=== PATIENT | male | born 1985 | race Asian ===

== ENCOUNTER 2018-08-07 12:56 | Outpatient (CLI) | payer OTHER | END 2018-08-07 19:09 | disposition home or self-care (01) | LOC: SRD 12:56 | PROVIDERS: ATTEND Internal Medicine | DX: M25.532 Pain in left wrist (principal) ==

== ENCOUNTER 2019-04-10 09:59 | Outpatient (CLI) | payer OTHER ==
[2019-04-10 11:17] LABS: BASOPHILS % (AUTO) 0.7 % (0.0-2.0); HEMATOCRIT 46.6 % (36-54); HEMOGLOBIN 16.4 g/dL (14.0-18.0); LYMPHOCYTES # (AUTO) 1.4 K/uL (1.0-5.5); LYMPHOCYTES % (AUTO) 26.8 % (20.5-51.5); MEAN CORPUSCULAR HEMOGLOBIN 32 pg (27-31); MEAN CORPUSCULAR HGB CONC 35 % (32-36); MEAN CORPUSCULAR VOLUME 91 fL (79.0-98.0); MONOCYTES # (AUTO) 0.4 K/uL (0.0-1.0); MONOCYTES % (AUTO) 7.7 % (1.7-9.3); NEUTROPHILS # (AUTO) 3.2 K/uL (1.8-7.7); NEUTROPHILS % (AUTO) 63.8 % (40.0-70.0); PLATELET COUNT (AUTO) 191 K/uL (130-430); RED CELL DISTRIBUTION WIDTH 12.8 % (9.0-15.0)
[2019-04-10 11:25] LABS: BILIRUBIN,URINE 1+ (NEGATIVE); BLOOD, URINE NEGATIVE (NEGATIVE); CLARITY/URINE CLEAR (CLEAR); GLUCOSE,URINE NEGATIVE (NEGATIVE); KETONES,URINE NEGATIVE (NEGATIVE); LEUKOCYTE ESTERASE ,URINE NEGATIVE (NEGATIVE); NITRITE, URINE POSITIVE (NEGATIVE); PROTEIN URINE 1+ (NEGATIVE)
[2019-04-10 11:27] LABS: COLOR,URINE AMBER (YELLOW)
[2019-04-10 11:42] LABS: ALBUMIN 4.3 g/dL (3.4-4.8); CALCIUM 9.3 mg/dL (8.4-11.0); CREATININE 1.11 mg/dL (0.55-1.30); POTASSIUM 4.1 mmol/L (3.5-5.1); THYROID STIMULATING HORMONE 1.99 uIu/mL (0.36-3.74); TOTAL BILIRUBIN 0.9 mg/dL (0.0-1.0)
[2019-04-10 11:52] LABS: BACTERIA,URINE FEW /HPF (None Seen)
[2019-04-11 04:15] LABS: HEMOGLOBIN A1C 5.2 % (4.8-5.6)
== END 2019-04-10 20:52 | disposition home or self-care (01) ==
LOC: SLB 09:59
PROVIDERS: ATTEND Internal Medicine
DX: E78.5 Hyperlipidemia, unspecified (principal); E66.9 Obesity, unspecified; R73.9 Hyperglycemia, unspecified
CPT/HCPCS: 36415; 80053; 80061; 81000-TC; 82306; 83036; 84443-TC; 85025; 87086

== ENCOUNTER 2019-04-14 14:36 | Outpatient (CLI) | payer OTHER | END 2019-04-14 20:40 | disposition home or self-care (01) | LOC: SLB 14:36 | PROVIDERS: ATTEND Internal Medicine | DX: A74.89 Other chlamydial diseases (principal) | CPT/HCPCS: 87491; 87591 ==

== ENCOUNTER 2019-04-16 08:45 | Outpatient (CLI) | payer OTHER | END 2019-04-16 20:12 | disposition home or self-care (01) | LOC: SUS 08:45 | PROVIDERS: ATTEND Internal Medicine | DX: R31.9 Hematuria, unspecified (principal); R94.5 Abnormal results of liver function studies | CPT/HCPCS: 76700-TC ==

== ENCOUNTER 2019-04-18 16:18 | Outpatient (CLI) | payer OTHER ==
[2019-04-22 01:14] LABS: CHLAMYDIA TRACHOMATIS NAA Negative (Negative); NEISSERIA GONORRHOEAE NAA Negative (Negative)
== END 2019-04-18 18:00 | disposition home or self-care (01) ==
LOC: SLB 16:18
PROVIDERS: ATTEND Internal Medicine
DX: A74.89 Other chlamydial diseases (principal)
CPT/HCPCS: 87491; 87591

== ENCOUNTER 2020-09-20 13:52 | Outpatient (CLI) | payer OTHER ==
[2020-09-20 14:45] LABS: BASOPHILS % (AUTO) 0.7 % (0.0-2.0); EOSINOPHILS % (AUTO) 0.4 % (0.0-4.0); HEMATOCRIT 43.9 % (36-54); HEMOGLOBIN 15.7 g/dL (14.0-18.0); LYMPHOCYTES # (AUTO) 1.3 K/uL (1.0-5.5); LYMPHOCYTES % (AUTO) 25.2 % (20.5-51.5); MEAN CORPUSCULAR HEMOGLOBIN 32 pg (27-31); MEAN CORPUSCULAR HGB CONC 36 % (32-36); MEAN CORPUSCULAR VOLUME 89 fL (79.0-98.0); MONOCYTES # (AUTO) 0.4 K/uL (0.0-1.0); MONOCYTES % (AUTO) 7.3 % (1.7-9.3); NEUTROPHILS # (AUTO) 3.4 K/uL (1.8-7.7); NEUTROPHILS % (AUTO) 66.4 % (40.0-70.0); PLATELET COUNT (AUTO) 182 K/uL (130-430); RED BLOOD CELL COUNT(AUTO) 4.93 MIL/uL (4.2-6.2); RED CELL DISTRIBUTION WIDTH 12.9 % (9.0-15.0); WHITE BLOOD COUNT (AUTO) 5.2 K/uL (4.8-10.8)
[2020-09-20 14:53] LABS: CALCIUM 9.3 mg/dL (8.4-11.0); CREATININE 1.28 mg/dL (0.55-1.30); POTASSIUM 4.3 mmol/L (3.5-5.1); THYROID STIMULATING HORMONE 1.59 uIu/mL (0.34-4.82); TOTAL BILIRUBIN 1.1 mg/dL (0.0-1.0); URIC ACID 7.8 mg/dL (2.4-7.0)
[2020-09-21 03:06] LABS: HEMOGLOBIN A1C 5.3 % (4.8-5.6)
== END 2020-09-20 20:42 | disposition home or self-care (01) ==
LOC: SLB 13:52
PROVIDERS: ATTEND Internal Medicine
DX: Z00.00 Encounter for general adult medical examination without abnormal findings (principal)
CPT/HCPCS: 36415; 80053; 80061; 82306; 82607; 83036; 84443-TC; 84550-TC; 85025

== ENCOUNTER 2021-01-13 08:25 | Outpatient (CLI) | payer OTHER, MEDICAID ==
[2021-01-13 09:23] LABS: BASOPHILS % (AUTO) 0.5 % (0.0-2.0); EOSINOPHILS # (AUTO) 0.1 K/uL (0.0-0.4); EOSINOPHILS % (AUTO) 0.8 % (0.0-4.0); HEMATOCRIT 42.2 % (36-54); HEMOGLOBIN 14.8 g/dL (14.0-18.0); LYMPHOCYTES # (AUTO) 1.6 K/uL (1.0-5.5); LYMPHOCYTES % (AUTO) 22.6 % (20.5-51.5); MEAN CORPUSCULAR HEMOGLOBIN 32 pg (27-31); MEAN CORPUSCULAR HGB CONC 35 % (32-36); MEAN CORPUSCULAR VOLUME 91 fL (79.0-98.0); MONOCYTES # (AUTO) 0.5 K/uL (0.0-1.0); MONOCYTES % (AUTO) 6.5 % (1.7-9.3); NEUTROPHILS % (AUTO) 69.6 % (40.0-70.0); PLATELET COUNT (AUTO) 179 K/uL (130-430); RED BLOOD CELL COUNT(AUTO) 4.67 MIL/uL (4.2-6.2); RED CELL DISTRIBUTION WIDTH 13.7 % (9.0-15.0); WHITE BLOOD COUNT (AUTO) 7.2 K/uL (4.8-10.8)
[2021-01-13 09:27] LABS: ALBUMIN 3.7 g/dL (3.4-4.8); CALCIUM 8.5 mg/dL (8.4-11.0); CREATININE 0.92 mg/dL (0.55-1.30); POTASSIUM 3.6 mmol/L (3.5-5.1); TOTAL BILIRUBIN 0.6 mg/dL (0.0-1.0); URIC ACID 4.2 mg/dL (2.4-7.0)
== END 2021-01-13 19:36 | disposition home or self-care (01) ==
LOC: SUS 08:25
PROVIDERS: ATTEND Internal Medicine
DX: R94.5 Abnormal results of liver function studies (principal); E78.5 Hyperlipidemia, unspecified; E79.0 Hyperuricemia without signs of inflammatory arthritis and tophaceous disease; E66.9 Obesity, unspecified
CPT/HCPCS: 36415; 76700-TC; 80053; 80061; 84550; 85025

== ENCOUNTER 2021-09-07 15:08 | Outpatient (CLI) | payer OTHER, MEDICAID ==
[2021-09-07 18:32] LABS: BASOPHILS % (AUTO) 0.2 % (0.0-2.0); EOSINOPHILS % (AUTO) 0.2 % (0.0-4.0); HEMATOCRIT 44.8 % (36-54); HEMOGLOBIN 15.4 g/dL (14.0-18.0); LYMPHOCYTES # (AUTO) 1.2 K/uL (1.0-5.5); LYMPHOCYTES % (AUTO) 15.2 % (20.5-51.5); MEAN CORPUSCULAR HEMOGLOBIN 31 pg (27-31); MEAN CORPUSCULAR HGB CONC 34 % (32-36); MEAN CORPUSCULAR VOLUME 91 fL (79.0-98.0); MONOCYTES # (AUTO) 0.4 K/uL (0.0-1.0); MONOCYTES % (AUTO) 5.2 % (1.7-9.3); NEUTROPHILS # (AUTO) 6.1 K/uL (1.8-7.7); NEUTROPHILS % (AUTO) 79.2 % (40.0-70.0); PLATELET COUNT (AUTO) 289 K/uL (130-430); RED BLOOD CELL COUNT(AUTO) 4.95 MIL/uL (4.2-6.2); RED CELL DISTRIBUTION WIDTH 13.2 % (9.0-15.0); WHITE BLOOD COUNT (AUTO) 7.8 K/uL (4.8-10.8)
[2021-09-07 18:52] LABS: ALBUMIN 3.8 g/dL (3.4-4.8); CALCIUM 9.5 mg/dL (8.4-11.0); CREATININE 0.89 mg/dL (0.55-1.30); POTASSIUM 3.7 mmol/L (3.5-5.1); THYROID STIMULATING HORMONE 0.95 uIu/mL (0.36-3.74); TOTAL BILIRUBIN 0.5 mg/dL (0.0-1.0)
[2021-09-09 08:07] LABS: HEMOGLOBIN A1C 5.1 % (4.8-5.6)
== END 2021-09-07 18:40 | disposition home or self-care (01) ==
LOC: SLB 15:08
PROVIDERS: ATTEND Internal Medicine
DX: E66.9 Obesity, unspecified (principal); E78.5 Hyperlipidemia, unspecified; E79.0 Hyperuricemia without signs of inflammatory arthritis and tophaceous disease; E55.9 Vitamin D deficiency, unspecified; E56.9 Vitamin deficiency, unspecified
CPT/HCPCS: 36415; 80053; 80061; 82306; 82607; 83036; 84443; 84550; 85025

== ENCOUNTER 2023-10-04 12:41 | Outpatient (CLI) | payer OTHER ==
[2023-10-04] MEDS ORDERED: DIATR MEGLU/DIATRIZ SOD 30 ML SOLUTION PO ONE (12:57)
== END 2023-10-04 20:59 | disposition home or self-care (01) ==
LOC: SCT 12:41
PROVIDERS: ATTEND Internal Medicine
DX: R19.00 Intra-abdominal and pelvic swelling, mass and lump, unspecified site (principal); R10.9 Unspecified abdominal pain
CPT/HCPCS: 74178; Q9967; Q9964